=== PATIENT | female | born 1995 | race Caucasian/White ===

== ENCOUNTER 2016-09-30 09:31 | Day surgery (SDC) | payer BC ==
[2016-09-30] MEDS ORDERED: LIDOCAINE HCL 1%/EPI 1:100,000 - 20 ML VIAL ONE (09:40)
[2016-09-30] MEDS ORDERED: SODIUM BICARBONATE 8.4% - 50 ML VIAL ONE (09:40)
[2016-09-30 09:54] VITALS: RESP 16
[2016-09-30] MEDS ORDERED: BACITRACIN/POLYMYXIN 0.9 GM PACKET TOPICAL ONE (10:41)
--- NOTE | 2016-09-30 11:31 | GEN.OPNOTE ---
Operative Note Surgery Date: 09/30/16 Preoperative Diagnosis: Atypical pigmented skin lesions right neckx2 and right groin. Postoperative Diagnosis: Same. Procedure: Shave excision 6 mm skin lesion right posterior neck. Shave excision 1.2 cm lesion right posterior neck. Excision 1.2 cm lesion right groin. Surgeon: Michael Samuel MD Anesthesia Type: Local (1% Xylocaine with epinephrine and sodium bicarbonate) Estimated Blood Loss (mL): 1 Fluids: No IV fluids given. Pathology: Specimens to pathology. Indications: Atypical pigmented skin lesions as described. Complications: none. Operative Summary: The patient was taken to the operating suite and placed in the left lateral decubitus position. The right posterior neck was prepped and draped in a sterile fashion. Surgical timeout was done. The base of the lesions was infiltrated with 1% Xylocaine with epinephrine and bicarbonate. Shave excision was accomplished. There was no further pigmentation. The bases were gently cauterized. Antibiotic ointment and Band-Aid dressings were placed. Attention was turned to the right groin. The area was infiltrated with 1% Xylocaine with epinephrine and sodium bicarbonate. I felt this lesion was best treated with elliptical excision. Elliptical excision was accomplished taking the full-thickness of the skin. Hemostasis was assured. The incision was closed with inverted interrupted 3/0 Vicryls in the deep dermis. The skin was closed with running subcuticular 4-0 Prolene followed by Mastisol, Steri-Strips , and a Band-Aid dressing. Patient tolerated all aspects of the procedure well without complication. She was taken to outpatient surgery in stable condition. All counts were correct.
[2016-09-30 12:21] VITALS: TEMP 97.6
== END 2016-09-30 11:33 | disposition home or self-care (01) ==
LOC: SDSC 09:31
PROVIDERS: ATTEND Surgery
DX: D22.4 Melanocytic nevi of scalp and neck (principal); D22.5 Melanocytic nevi of trunk

== ENCOUNTER → 2016-10-26 | Outpatient (CLI) | payer BC ==
[2016-10-26 12:30] LABS: BILIRUBIN,URINE NEGATIVE (NEG); CLARITY,URINE CLEAR (CLEAR); COLOR,URINE YELLOW; GLUCOSE, URINE (UA) NEGATIVE (NEG); NITRATE,URINE NEGATIVE (NEG); OCCULT BLOOD,URINE Trace-intact (NEG); PH,URINE 5.5 (5.0-8.5); PROTEIN,URINE NEGATIVE (NEG); UROBILINOGEN,URINE 0.2 mg/dL (0.2)
[2016-10-26 12:34] LABS: SQUAMOUS EPITHELIAL CELL,UR RARE; URINE SAMPLE TYPE CLEAN CATCH URINE; WBC,URINE 0-3
[2016-10-26 12:35] LABS: BACTERIA,URINE RARE
== END ==
LOC: MOB LAB 12:04
PROVIDERS: ATTEND Family Medicine
DX: R30.0 Dysuria (principal)
CPT/HCPCS: 81001